=== PATIENT | female | born 1950 | race Caucasian/White ===

== ENCOUNTER 2019-05-07 12:13 | Inpatient (IN) ==
[2019-05-07] MEDS ORDERED: SODIUM CHLORIDE 0.9% 1000ML 1,000 ML IV ONE (12:22)
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
[2019-05-07 12:59] LABS: INR 1.2 (0.9-1.1); Partial Thromboplastin Ratio 2.1; Prothrombin Time 12.2 Seconds (9.0-12.0)
[2019-05-07 13:00] LABS: Alanine Aminotransferase 188 U/L (12-78); Albumin Globulin Ratio 0.8 (0.9-2); Albumin Level 2.6 gm/dl (3.4-5.0); Alkaline Phosphatase 77 U/L (45-117); Aspartate Aminotransferase 227 U/L (15-37); BUN Creatinine Ratio 16.8 (10-20); Bilirubin,Total 0.2 mg/dl (0.2-1); Blood Urea Nitrogen 16 mg/dl (7-18); Calcium 8.6 mg/dl (8.5-10.1); Carbon Dioxide 11 mmol/L (21-32); Chloride 109 mmol/L (98-107); Est GFR (African American) 69.6; Globulin 3.4 gm/dl (2.5-4.0); Glucose 411 mg/dl (70-99); Partial Thromboplastin Time 55.8 Seconds (21.0-31.0); Potassium 5.8 mmol/L (3.5-5.1); Sodium 144 mmol/L (136-145)
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
[2019-05-07 13:49] LABS: Hematocrit (blood only) 38.4 % (37-47); Hemoglobin 10.5 g/dL (12.0-16.0); Mean Corpuscular Hemoglobin 24.6 pg (25-34); Mean Corpuscular Hgb Conc 27.3 g/dL (32-36); Mean Corpuscular Volume 89.9 fL (80-100); Mean Platelet Volume 10.4 fL (7.4-10.4); Nucleated RBC # (auto) 0.13 K/uL (0-0); Nucleated RBC % (auto) 1.5 %; Platelet Count 179 K/uL (130-400); RDW Coefficient of Variation 17.4 % (11.5-14.5); RDW Standard Deviation 57.1 fL (36.4-46.3); Red Blood Count 4.27 M/uL (4.2-5.4); White Blood Count 8.54 K/uL (4.8-10.8)
[2019-05-07 13:50] LABS: Basophils % (auto) 1.2 %; Echinocytes 2+; Eosinophils # (auto) 0.17 K/uL (0-0.5); Immature Granulocytes # (auto) 0.38 K/uL (0.00-0.02); Immature Granulocytes % (auto) 4.4 %; Lymphocytes # (auto) 5.47 K/uL (1.2-3.4); Lymphocytes % (auto) 64.1 %; Monocytes # (auto) 1.16 K/uL (0.11-0.59); Monocytes % (auto) 13.6 %; Neutrophils # (auto) 1.26 K/uL (1.4-6.5); Neutrophils % (auto) 14.7 %
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
[2019-05-07] MEDS: SODIUM BICARBONATE 8.4% 150 MEQ in DEXTROSE 5% 1,000 ML IV SCH ×2 (14:00→17:03)
[2019-05-07] MEDS ORDERED: MIDAZOLAM HCL 1 MG/ML 2ML VIAL ONE (14:17)
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
[2019-05-07] MEDS ORDERED: PIPERACILL/TAZOBAC CONSULT ACTIVE PRN ×2 (14:44→14:45)
[2019-05-07] MEDS ORDERED: HEPARIN SODIUM/DEXTROSE 25,000 UNITS/500 ML BAG IV SCH ×2 (14:45→15:30)
[2019-05-07] MEDS ORDERED: EPINEPHrine 2 MG in DEXTROSE 5% 250 ML IV STA (14:49)
[2019-05-07] MEDS ORDERED: INSULIN REGULAR 250 UNITS in SODIUM CHLORIDE 0.9% 247.5 ML IV SCH (15:00)
[2019-05-07] MEDS ORDERED: CARBOHYDRATES FOR HYPOGLYCEMIA PO PRN (15:00)
[2019-05-07] MEDS ORDERED: NovoLIN-R BOLUS FROM BAG IV ONE (15:00)
[2019-05-07] MEDS ORDERED: GLUCOSE 10 TABS/TUBE PO PRN (15:00)
[2019-05-07] MEDS ORDERED: GLUCAGON FOR INJ 1 MG VIAL IM PRN (15:00)
[2019-05-07] MEDS ORDERED: GLUCOSE 40% GEL 15 GM TUBE PO PRN (15:00)
[2019-05-07] MEDS ORDERED: DEXTROSE 50% 50 ML SYRINGE IV PRN (15:00)
[2019-05-07] MEDS ORDERED: NOREPINEPHRINE BIT INJ 4 MG in DEXTROSE 5% 250 ML IV SCH (15:06)
[2019-05-07] MEDS ORDERED: Heparin IV Standard *NO* Bolus IV ONE (15:06)
[2019-05-07] MEDS ORDERED: PIPERACILLIN/TAZOBACTAM 4.5 GM in DEXTROSE 5% 100 ML IV STA (15:12)
[2019-05-07] MEDS ORDERED: PIPERACILLIN/TAZOBACTAM 4.5 GM/120ML D5W ONE (15:18)
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
--- NOTE | 2019-05-07 15:19 | XRay Report ---
SINGLE VIEW CHEST CLINICAL HISTORY: Central venous catheter placement. FINDINGS: An AP, portable, upright chest radiograph is compared to chest x-ray and chest CT performed earlier the same day 05/07/2019. The examination is degraded by portable technique and patient rotati on. An endotracheal tube has been repositioned. The tip now projects 3 cm above the clarke. A left in ternal jugular central venous catheter has been placed. The tip projects over the SVC. The heart is e nlarged noting atherosclerotic calcification of the thoracic aorta. There is pulmonary vascular conge stion. There is dense bilateral airspace consolidation, right greater than left. This appears slightl y more confluent as compared to previous. Small pleural effusions are suspected. No pneumothorax is s een. The skeletal structures are osteopenic. Known bilateral rib fractures are not well visualized. A presumed earring is again seen projecting over the neck. Vascular stents project over the right uppe r extremity. IMPRESSION: 1. A left internal jugular central venous catheter has been placed as above. No pneumothorax is ident ified post procedure. 2. Cardiomegaly and pulmonary vascular congestion. 3. The tip of the endotracheal tube now projects 3 cm above the clarke. 4. There is dense bilateral airspace consolidation, right greater than left. This appears increasingl y confluent from previous. 5. Small pleural effusions. Electronically signed by: Jeet Mccollum M.D. 05/07/2019 3:18 PM
[2019-05-07] MEDS ORDERED: PIPERACILLIN/TAZOBACTAM 4.5 GM/120ML D5W IV STA (15:22)
[2019-05-07 15:57] LABS: Hematocrit (blood only) 33.5 % (37-47); Hemoglobin 9.5 g/dL (12.0-16.0); Mean Corpuscular Hemoglobin 24.5 pg (25-34); Mean Corpuscular Hgb Conc 28.4 g/dL (32-36); Mean Corpuscular Volume 86.6 fL (80-100); Mean Platelet Volume 9.2 fL (7.4-10.4); Nucleated RBC % (auto) 2.8 %; Platelet Count 238 K/uL (130-400); RDW Coefficient of Variation 17.1 % (11.5-14.5); RDW Standard Deviation 53.8 fL (36.4-46.3); Red Blood Count 3.87 M/uL (4.2-5.4); White Blood Count 10.73 K/uL (4.8-10.8)
[2019-05-07] MEDS ORDERED: ICU PROTOCOL FOR HYPERGLYCEMIA PRN (15:58)
[2019-05-07] MEDS ORDERED: PHARMACY GLYCEMIC MGMT CONSULT PRN (16:08)
[2019-05-07 16:24] LABS: Basophils # (auto) 0.15 K/uL (0-0.2); Basophils % (auto) 1.4 %; Echinocytes 1+; Eosinophils # (auto) 0.14 K/uL (0-0.5); Eosinophils % (auto) 1.3 %; Hypochromasia Present; Immature Granulocytes # (auto) 0.71 K/uL (0.00-0.02); Immature Granulocytes % (auto) 6.6 %; Lymphocytes # (auto) 3.97 K/uL (1.2-3.4); Monocytes % (auto) 2.8 %; Neutrophils # (auto) 5.46 K/uL (1.4-6.5); Neutrophils % (auto) 50.9 %; Ovalocytes 1+
[2019-05-07] MEDS ORDERED: INSULIN ASPART 100 UNITS/ML 3 ML PEN SC SCH (16:30)
[2019-05-07 16:31] LABS: Magnesium 2.5 mg/dl (1.8-2.4); Phosphorus 9.6 mg/dl (2.5-4.9)
[2019-05-07 16:32] LABS: Albumin Level 2.4 gm/dl (3.4-5.0); Bilirubin,Total 0.2 mg/dl (0.2-1); Creatinine Clr Calc Pharmacy 46.9 ml/min; Est GFR (African American) 49.7; Est GFR (Non-African American) 42.9; Total Protein 5.5 gm/dl (6.4-8.2)
[2019-05-07 16:33] LABS: Albumin Globulin Ratio 0.8 (0.9-2); BUN Creatinine Ratio 14.2 (10-20); Calcium 11.4 mg/dl (8.5-10.1); Globulin 3.1 gm/dl (2.5-4.0); Potassium 6.3 mmol/L (3.5-5.1)
[2019-05-07 16:48] LABS: iSTAT Art Bld Gas pCO2 Correct 64 mmHg (35-46); iSTAT Art Bld Gas pH Corrected 7.143 (7.35-7.45); iSTAT Arterial Blood Gas HCO3 22 meg/L (19-24); iSTAT Arterial Blood Gas pCO2 65 mmHg (35-46); iSTAT Arterial Blood Gas pH 7.14 (7.35-7.45); iSTAT Arterial Blood Gas pO2 65 mmHg (80-95); iSTAT Arterial Blood Gas pO2 C 64; iSTAT Carbon Dioxide 24 mEq/l (24-31); iSTAT FiO2 100 %; iSTAT Hematocrit 27 % (37-47); iSTAT Hemoglobin 9.2 g/dl (12.0-16.0); iSTAT Site R Radial; iSTAT Sodium 137 mEq/L (135-144)
[2019-05-07] MEDS ORDERED: SODIUM POLYSTYRENE SULFONATE 15G/60ML SUSP PO ONE (17:00)
--- NOTE | 2019-05-07 17:14 | XRay Report ---
SINGLE VIEW CHEST CLINICAL HISTORY: Enteric tube placement. FINDINGS: An AP, portable, semierect chest radiograph is compared to chest x-rays and chest CT perfor med earlier the same day 05/07/2019. The examination is degraded by portable technique and patient rot ation. An endotracheal tube and a left internal jugular central venous catheter are unchanged in posi tion. An enteric tube has been placed. The tip extends below the diaphragm and is not visualized. The heart is enlarged noting atherosclerotic calcification of the thoracic aorta. There is pulmonary vas cular congestion. There is dense bilateral airspace consolidation, right greater than left. Small pl eural effusions are suspected. No pneumothorax is seen. The skeletal structures are osteopenic. Known bilateral rib fractures are not well visualized. Vascular stents project over the right upper extre mity. IMPRESSION: 1. An enteric tube has been placed. The tip extends below the diaphragm. 2. The remaining lines and tubes are unchanged. 3. Cardiomegaly and pulmonary vascular congestion. 4. Dense bilateral airspace consolidation and small pleural effusions are similar to previous. Electronically signed by: Jeet Mccollum M.D. 05/07/2019 5:13 PM
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
[2019-05-07 18:25] LABS: iSTAT Arterial Blood Gas HCO3 21 meg/L (19-24); iSTAT Arterial Blood Gas pCO2 59 mmHg (35-46); iSTAT Arterial Blood Gas pH 7.15 (7.35-7.45); iSTAT Arterial Blood Gas pO2 67 mmHg (80-95); iSTAT Carbon Dioxide 22 mEq/l (24-31); iSTAT FiO2 100 %; iSTAT Site Art Line
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
[2019-05-07] MEDS ORDERED: DOBUTamine / D5W 500 MG/250 ML BAG IV SCH (18:47)
[2019-05-07] MEDS ORDERED: DOBUTamine 500MG / 250ML D5W IV ONE (19:08)
[2019-05-07 19:24] VITALS: BP 0/0; PULSE 0; O2SAT 75
[2019-05-07 19:25] LABS: Albumin Globulin Ratio 0.8 (0.9-2); Albumin Level 2.1 gm/dl (3.4-5.0); BUN Creatinine Ratio 13.5 (10-20); Bilirubin,Total 0.3 mg/dl (0.2-1); Creatinine Clr Calc Pharmacy 32.8 ml/min; Est GFR (African American) 36.6; Est GFR (Non-African American) 31.6; Globulin 2.6 gm/dl (2.5-4.0); Total Protein 4.7 gm/dl (6.4-8.2)
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
[2019-05-07 19:32] LABS: Potassium 4.9 mmol/L (3.5-5.1)
[2019-05-07] MEDS ORDERED: NOREPINEPHRINE BIT INJ 8 MG in DEXTROSE 5% 500 ML IV SCH (20:00)
[2019-05-07] MEDS ORDERED: PIPERACILLIN/TAZOBACTAM 4.5 GM in DEXTROSE 5% 100 ML IV SCH (20:00)
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
[2019-05-07] MEDS ORDERED: INFLUENZA VIRUS QUAD VACCINE 0.5 ML SYR IM ONE (20:45)
[2019-05-07] MEDS ORDERED: PNEUMOCOCCAL ADMINISTRATION CHARGE ONE (20:45)
[2019-05-07] MEDS ORDERED: PNEUMOCOCCAL POLYSACCHARIDES 25 MCG/0.5 ML VIAL/SYR IM ONE (20:45)
[2019-05-07] MEDS ORDERED: INFLUENZA ADMINISTRATION CHARGE ONE (20:45)
[2019-05-07] MEDS ORDERED: SODIUM CHLORIDE 0.9% 10ML FLUSH IV ONE (22:46)
[2019-05-07] MEDS ORDERED: NITROGLYCERIN/D5W 100 MCG/ML BTL IV ONE (22:46)
[2019-05-07] MEDS ORDERED: CALCIUM CHLORIDE 10% 10 ML SYR IV ONE ×2 (22:46)
[2019-05-07] MEDS ORDERED: SODIUM BICARB 8.4% INJ 50 MEQ/50 ML SYR IV ONE ×2 (22:46)
[2019-05-07] MEDS ORDERED: PIPERACILLIN/TAZOBACTAM 3.375 GM in DEXTROSE 5% 100 ML IV SCH (23:00)
== END 2019-05-07 22:47 | disposition expired | DRG 252 ==
LOC: ED 12:13 → 1E 14:45